=== PATIENT | male | born 1975 | race Caucasian/White ===

== ENCOUNTER 2024-04-16 13:51 | Emergency (ER) | payer MEDICAID, SELFPAY ==
[~2024-04-16] VITALS: Ht 170.2 cm; Wt 90.9 kg
[~2024-04-16 13:51] MED LIST: NOCURR
[2024-04-16 13:55] VITALS: TEMP 98.3
[2024-04-16] MEDS: PERTUSS(ACELL),DIPH,TET/PF 0.5 ML SYRINGE [ADULT] IM. ONE (17:22)
[2024-04-16] MEDS ORDERED: CEPH-558 PO (17:56)
[2024-04-16] MEDS ORDERED: IBUP-1492 PO (17:56)
[2024-04-16] MEDS: CEPHALEXIN MONOHYDRATE 500 MG CAPSULE PO ONE (18:04)
[2024-04-16] MEDS: BACITRACIN 0.9 GM PACKET OINTMENT TP ONE (18:04)
[2024-04-16 18:05] VITALS: BP 143/79; PULSE 82; RESP 18; O2SAT 100
== END 2024-04-16 18:19 | disposition home or self-care (01) ==
LOC: EMS 13:51
DX: S61.012A Laceration without foreign body of left thumb without damage to nail, initial encounter (principal); F17.210 Nicotine dependence, cigarettes, uncomplicated; W27.0XXA Contact with workbench tool, initial encounter; Y93.89 Activity, other specified; Y92.89 Other specified places as the place of occurrence of the external cause; Y99.8 Other external cause status
CPT/HCPCS: 90471; 90715; 99283